=== PATIENT | female | born 1995 | race Caucasian/White ===

== ENCOUNTER 2016-06-03 12:55 | Emergency (ER) | payer MEDICAID, OTHER ==
[~2016-06-03] VITALS: Ht 157.5 cm; Wt 55.0 kg
[~2016-06-03 12:55] MED LIST: CLIN1CAP6 PO
[2016-06-03 13:48] VITALS: BP 119/80; PULSE 116; RESP 14; TEMP 98.2; O2SAT 99
[2016-06-03 14:00] LABS: AUTOMATED NEUTROPHIL # 10.9 TH/MM3 (1.8-7.7); BASOPHIL # 0.1 TH/MM3 (0-0.2); BASOPHIL % 0.6 % (0.0-2.0); EOSINOPHIL % 0.1 % (0.0-4.0); HEMATOCRIT 32.3 % (35.0-46.0); LYMPH % 12.1 % (9.0-44.0); LYMPHOCYTE # 1.6 TH/MM3 (1.0-4.8); MEAN CELL VOLUME 69.6 FL (80.0-100.0); MEAN CORPUSCULAR HEMOGLOBIN 21.2 PG (27.0-34.0); MEAN CORPUSCULAR HGB CONC 30.5 % (32.0-36.0); MONO % 5.2 % (0.0-8.0); PLATELET COUNT 378 TH/MM3 (150-450); RED BLOOD COUNT 4.64 MIL/MM3 (4.00-5.30); RED CELL DISTRIBUTION WIDTH 19.1 % (11.6-17.2); WHITE BLOOD COUNT 13.3 TH/MM3 (4.0-11.0)
[2016-06-03 14:04] LABS: HEMO FLAGS AUTO DIFF
[2016-06-03 14:16] LABS: AMPHETAMINE, URINE NEG (NEG); BARBITURATES, URINE NEG (NEG); COCAINE, URINE NEG (NEG)
[2016-06-03 14:20] LABS: ANION GAP 9 MEQ/L (5-15); BICARBONATE 23.1 MEQ/L (21.0-32.0); BLOOD UREA NITROGEN 18 MG/DL (7-18); CHLORIDE 108 MEQ/L (98-107); GLOMERULAR FILTRATION RATE 55 ML/MIN (>89); POTASSIUM 3.9 MEQ/L (3.5-5.1); SODIUM (NA) 140 MEQ/L (136-145)
[2016-06-03 14:35] LABS: PLATELET ESTIMATE SMEAR NORMAL (NORMAL); PLATELET MORPHOLOGY NORMAL (NORMAL); SCAN/DIFF AUTO DIFF CONFIRMED
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
[2016-06-03 15:25] VITALS: BP 107/67; PULSE 109; RESP 18; TEMP 97.7; O2SAT 100
[2016-06-03 18:33] VITALS: BP 107/67; PULSE 109; RESP 18
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
[2016-11-10] MEDS ORDERED: no current meds (15:22)
[2016-11-10] MEDS ORDERED: FE FCAP PO (16:02)
[2016-11-10] MEDS ORDERED: NORE1CAP PO (16:02)
== END 2016-06-03 19:06 | disposition home or self-care (01) ==
LOC: NEDAMB 12:55 → NEPJ 19:06
DX: Z02.89 Encounter for other administrative examinations (principal); R00.0 Tachycardia, unspecified; D72.829 Elevated white blood cell count, unspecified; F43.29 Adjustment disorder with other symptoms
CPT/HCPCS: 80048; 80307; 80320; 85025; 99284

== ENCOUNTER 2017-06-03 10:43 | Emergency (ER) | payer MEDICAID, OTHER ==
[~2017-06-03] VITALS: Ht 154.9 cm; Wt 46.0 kg
[~2017-06-03 10:43] MED LIST changes: -CLIN1CAP6 PO; +FE FCAP PO; +NORE1CAP PO
[2017-06-03 11:13] VITALS: BP 113/62; PULSE 90; RESP 16; TEMP 98.3; O2SAT 100
[2017-06-03 12:54] LABS: BILIRUBIN, URINE NEG (NEG); BLOOD, URINE NEG (NEG); GLUCOSE,URINE NEG (NEG); KETONE, URINE NEG (NEG); NITRITE,URINE NEG (NEG); URINE LEUKOCYTE ESTERASE NEG (NEG)
[2017-06-03 13:02] LABS: AMORPHOUS SEDIMENT, URINE FEW; BACTERIA, URINE MOD /hpf; URINE COLOR STRAW (YELLW/STRAW)
--- NOTE | 2017-06-03 13:35 | PD ---
HPI Chief Complaint: Fitness Professional Problem/Complaint Time Seen by Provider: 12:20 Travel History International Travel<30 days: No Contact w/Intl Traveler<30days: No Traveled to known affect area: No History of Present Illness HPI The patient's 21-year-old female. The patient rested ER with complaint of vaginal discharge and pelvic pain. The pain started a few days prior. It's constant and worse with palpation. She denies fever. No pain with urination and urinary symptoms. No diarrhea or vomiting. No abnormal vaginal bleeding. PFSH Past Medical History Heart Rhythm Problems: Yes (tachycardia) Cardiovascular Problems: Yes (TACHYCARDIA) Diminished Hearing: No Immunizations Current: Yes Influenza Vaccination: Yes ?: Not LMP: BCP : 3 Para: 2 Dilation and Curettage (D&C): Yes Social History Alcohol Use: No Tobacco Use: No Substance Use: No Allergies-Medications (Allergen,Severity, Reaction): Coded Allergies: No Known Allergies (Unverified Adverse Reaction, Unknown, 06/03/17) Reported Meds & Prescriptions Reported Meds & Active Scripts Active Taytulla (Norethindrone-Ethinyl Estradiol-Fe) 1-20 mg-Mcg Cap 1 Tab PO DAILY Review of Systems Except as stated in HPI: all other systems reviewed are Neg General / Constitutional: No: Fever Physical Exam Narrative GENERAL: Well-nourished well-developed 18-year-old female no acute distress SKIN: Warm and dry. HEAD: Atraumatic. Normocephalic. EYES: Pupils equal and round. No scleral icterus. No injection or drainage. ENT: No nasal bleeding or discharge. Mucous membranes pink and moist. NECK: Trachea midline. No JVD. CARDIOVASCULAR: Regular rate and rhythm. RESPIRATORY: No accessory muscle use. Clear to auscultation. Breath sounds equal bilaterally. GASTROINTESTINAL: Soft. Minimal tenderness palpation left side. No rebound or guarding. PELVIC: Pelvic was performed by the medical student reveals no CMT or adnexal tenderness/masses. MUSCULOSKELETAL: Extremities without clubbing, cyanosis, or edema. No obvious deformities. NEUROLOGICAL: Awake and alert. No obvious cranial nerve deficits. Motor grossly within normal limits. Five out of 5 muscle strength in the arms and legs. Normal speech. PSYCHIATRIC: Appropriate mood and affect; insight and judgment normal. Data Data Last Documented VS Vital Signs Date Time Temp Pulse Resp B/P (MAP) Pulse Ox O2 Delivery O2 Flow Rate FiO2 06/03/17 11:13 98.3 90 16 113/62 (79) 100 Vital signs reviewed Orders Orders Gc And Chlamydia Pcr (06/03/17 12:38) Wet Prep Profile (06/03/17 12:38) Urinalysis - C+S If Indicated (06/03/17 12:38) Urine Culture (06/03/17 12:50) Ed Discharge Order (06/03/17 13:35) Labs Laboratory Tests Test 06/03/17 12:50 06/03/17 13:10 Urine Collection Type CLEAN CATCH Urine Color STRAW Urine Turbidity CLEAR Urine pH 6.0 Urine Specific [place] 1.022 Urine Protein NEG mg/dL Urine Glucose (UA) NEG mg/dL Urine Ketones NEG mg/dL Urine Occult Blood NEG Urine Nitrite NEG Urine Bilirubin NEG Urine Leukocyte Esterase NEG Urine Squamous Epithelial Cells 6-8 /hpf Urine Amorphous Sediment FEW Urine Bacteria MOD /hpf Microscopic Urinalysis Comment CULTURE INDICATED Urine Collection Time 1251 Clue Cells (Wet Prep) NONE SEEN Vaginal Trichomonas (Wet Prep) NONE SEEN Vaginal Yeast (Wet Prep) NONE SEEN Chlamydia trachomatis DNA (PCR) NOT DETECTED Neisseria gonorrhoeae DNA (PCR) NOT DETECTED MDM Medical Decision Making Medical Screen Exam Complete: Yes Emergency Medical Condition: Yes Medical Record Reviewed: Yes Differential Diagnosis IUP, UTI, ectopic , ov torsion, appendicitis, TOA, cervicitis, BV, Trichomoniasis, ov cyst, hernia, mittelschmerz, pain from menstruation Narrative Course Wet prep is negative The urinalysis shows no UTI 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 Unfortunately, given the tenderness on exam and ultrasound was considered necessary. The patient understands to return to the ER immediately for finalization of her evaluation. And even sooner return has been discussed the patient again verbalized understanding that she can return any time. Patient competent for independent decision making. Diagnosis Primary Impression: Left against medical advice Disposition: 07 AGAINST MEDICAL ADVICE Condition: Domingo Gilman MD Jun 03, 2017 13:35
== END 2017-06-03 13:41 | disposition left against medical advice (07) ==
LOC: PHED 10:43
DX: R10.2 Pelvic and perineal pain (principal); Z53.21 Procedure and treatment not carried out due to patient leaving prior to being seen by health care provider; N89.8 Other specified noninflammatory disorders of vagina
CPT/HCPCS: 81001; 87086; 87210; 87491; 87591; 99283

== ENCOUNTER 2017-06-22 13:32 | Emergency (ER) | payer MEDICAID ==
[~2017-06-22] VITALS: Ht 154.9 cm; Wt 47.0 kg
[~2017-06-22 13:32] MED LIST changes: -FE FCAP PO
[2017-06-22 13:37] VITALS: BP 128/64; PULSE 122; RESP 20; TEMP 99.2; O2SAT 96
[2017-06-22] MEDS ORDERED: IBUPROFEN 400 MG TAB PO ONE (15:45)
[2017-06-22] MEDS ORDERED: ACETAMINOPHEN 325 MG TAB PO ONE (15:45)
[2017-06-22] MEDS ORDERED: OSELTAMIVIR PHOSPHATE 75 MG CAP PO ONE (15:45)
[2017-06-22] MEDS ORDERED: OSEL75 PO (15:49)
--- NOTE | 2017-06-22 15:50 | PD ---
HPI Chief Complaint: Cold / Flu Symptoms Time Seen by Provider: 15:45 Travel History International Travel<30 days: No Contact w/Intl Traveler<30days: No Traveled to known affect area: No History of Present Illness HPI This 21-year-old female has been sick since Tuesday night. She had a sore throat and a cough. She works at the [employer]. Today she tried to go to work. She has not been eating well and she got very faint and had a brief syncopal episode. She has not had a syncopal episode before. She says there is no chance of . She has been aching all over. PFSH Past Medical History Heart Rhythm Problems: Yes (tachycardia) Cardiovascular Problems: Yes (TACHYCARDIA) Diminished Hearing: No Immunizations Current: Yes Tetanus Vaccination: Unknown ?: Not LMP: TUESDAY : 3 Para: 2 Dilation and Curettage (D&C): Yes Past Surgical History Surgical History: No Previous Surgery Social History Alcohol Use: No Tobacco Use: No Substance Use: No Allergies-Medications (Allergen,Severity, Reaction): Coded Allergies: No Known Allergies (Unverified Adverse Reaction, Unknown, 06/22/17) Reported Meds & Prescriptions Reported Meds & Active Scripts Active No Active Prescriptions or Reported Medications Review of Systems General / Constitutional: Positive: Fever, Chills Eyes: No: Diploplia HENT: Positive: Sore Throat, Rhinitis, No: Headaches Cardiovascular: No: Chest Pain or Discomfort Respiratory: Positive: Cough Gastrointestinal: Positive: Nausea, No: Diarrhea Genitourinary: No: Urgency, Dysuria Musculoskeletal: Positive: Myalgias Skin: No Rash, No Itching Endocrine: No: Heat Intolerance, Cold Intolerance Hematologic/Lymphatic: No: Easy Bruising Physical Exam Narrative GENERAL: Well-developed female SKIN: Focused skin assessment warm/dry. HEAD: Atraumatic. Normocephalic. EYES: Pupils equal and round. No scleral icterus. No injection or drainage. ENT: No nasal bleeding or discharge. Mucous membranes pink and moist. Pharynx is erythematous without exudate NECK: Trachea midline. No JVD. There are some bilateral anterior cervical nodes CARDIOVASCULAR: Regular rate and rhythm. No murmur appreciated. RESPIRATORY: No accessory muscle use. Clear to auscultation. Breath sounds equal bilaterally. GASTROINTESTINAL: Abdomen soft, non-tender, nondistended. Hepatic and splenic margins not palpable. MUSCULOSKELETAL: No obvious deformities. No clubbing. No cyanosis. No edema. NEUROLOGICAL: Awake and alert. No obvious cranial nerve deficits. Motor grossly within normal limits. Normal speech. PSYCHIATRIC: Appropriate mood and affect; insight and judgment normal. Data Data Last Documented VS Vital Signs Date Time Temp Pulse Resp B/P (MAP) Pulse Ox O2 Delivery O2 Flow Rate FiO2 06/22/17 15:09 16 96 Room Air 06/22/17 13:37 99.2 122 128/64 (85) Orders Orders Oseltamivir (Tamiflu) (06/22/17 15:45) Acetaminophen (Tylenol) (06/22/17 15:45) Ibuprofen (Motrin) (06/22/17 15:45) MDM Medical Decision Making Medical Screen Exam Complete: Yes Emergency Medical Condition: Yes Medical Record Reviewed: Yes Differential Diagnosis Differential includes influenza, viral syndrome Narrative Course Symptoms are consistent with influenza and I think the patient should get Tamiflu. Diagnosis Primary Impression: Influenza Departure Forms: Tests/Procedures, Work Release Enter return to work date: Jun 27, 2017 Scripts Oseltamivir (Tamiflu) 75 Mg Cap 75 MG PO BID for Mgmt Viral Infection for 5 Days, #10 CAP 0 Refills Prov: Baldemar Davis MD 06/22/17 Disposition: 01 DISCHARGE HOME Condition: Stable Baldemar Davis MD Jun 22, 2017 15:50
[2017-06-22 16:05] VITALS: BP 108/64; PULSE 108; RESP 17; O2SAT 98
== END 2017-06-22 16:11 | disposition home or self-care (01) ==
LOC: PHED 13:32 → PHEFT 16:11
DX: J11.1 Influenza due to unidentified influenza virus with other respiratory manifestations (principal)
CPT/HCPCS: 99283